=== PATIENT | female | born 2000 | race Two or more races ===

== ENCOUNTER 2023-08-01 11:52 | Emergency (ER) | payer SELFPAY ==
[2023-08-01] VITALS (11 sets, daily range): BP systolic 103–117; BP diastolic 39–66; PULSE 76–107; RESP 12–14; TEMP 37.1–38.3; O2SAT 97–98
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
[2023-08-01 12:36] LABS: Bilirubin Negative (Negative); Blood Negative (Negative); Clarity Clear (Clear); Glucose Negative (Negative); Ketones Negative (Negative); Leukocyte Esterase Small (Negative); Nitrite Negative (Negative); pH 8.5 (5-8)
--- NOTE | 2023-08-01 12:45 | DI.CT_ITS ---
Exam(s) CT ABDOMEN PELVIS W EXAM: CT ABDOMEN PELVIS W CLINICAL HISTORY: back and lower abd pain. TECHNIQUE: Imaging Protocol: Axial computed tomography images with coronal and sagittal reformatted images were created and reviewed CONTRAST MATERIAL: Intravenous: Omnipaque 350 Contrast volume:100 ml Oral: no COMPARISON: No exams were available for comparison FINDINGS: ABDOMEN and PELVIS: Lung Bases: No acute findings. Liver: Normal density. No measurable mass. Gallbladder and biliary tract: No radiodense calculus or dilation. Pancreas: Normal density. No abnormal calcifications or inflammatory process. No evidence of mass. Spleen: Normal. Kidneys: Normal size, contour and axis. Multifocal areas of decreased perfusion in both kidneys, gre atest the that the right lower pole could represent multifocal pyelonephritis. No perinephric collec tions. Mild urothelial enhancement. No radiodense stones. No obstructive uropathy. No suspicious ma sses seen. Adrenal glands: No masses seen. Vasculature: Abdominal aorta non-dilated. Soft tissues: Unremarkable. Bladder: Low bladder volume. Mild diffuse wall thickening. No calculi.No focal mass. Bowel: No obstruction. No bowel wall thickening. Appendix normal. Peritoneal cavity: No ascites. No focal collection or mesenteric inflammatory response. Bones: Hardware in the sacrum and pelvis creates artifact. Old moderate L2 compression fracture with retropulsion. No acute appearing abnormalities. Reproductive organs: Within normal limits. Lymph nodes: Unremarkable. IMPRESSION:: Patchy areas of decreased renal perfusion could represent multifocal pyelonephritis. M ild urothelial enhancement. Question of mild bladder wall thickening versus under distension. RADIATION DOSE DELIVERED: Total DLP DATA REPOSITORY: All CT scans at this facility are submitted to the National Radiology Data Registry (NRDR) Dose Index Registry (DIR) with the [employer] (ACR). RADIATION OPTIMIZATION: All CT scans at this facility use at least one of these dose optimization te chniques: automated exposure control; mA and/or kV adjustment per patient size (includes targeted exa ms where dose is matched to clinical indication); or iterative reconstruction.
[2023-08-01 12:47] LABS: Bacteria Few HPF (Negative); C & S Indicated? No/Sq. Contamination; Casts Negative LPF (Negative); Crystals Negative HPF (Negative); Epithelial Cells Many HPF (Negative); Mucus Negative (Negative); RBC 0-2 HPF (0-2); WBC 20-50 HPF (0-5)
[2023-08-01] MEDS: Normal Saline 1,000 ML 1000 ML IV (12:51)
[2023-08-01 12:52] LABS: Abs Immature Grans 0.02 10^3/uL (0.0-0.06); Absolute Basophil Count 0.04 10^3/uL (0.0-0.2); Absolute Eosinophil Count 0.03 10^3/uL (0.0-0.7); Absolute Lymphocyte Count 0.97 10^3/uL (1.2-3.4); Absolute Monocyte Count 1.04 10^3/uL (0.1-0.8); Absolute Neutrophil Count 5.91 10^3/uL (1.2-6.7); Basophils % 0.5; Eosinophils % 0.4; HCT 32.5 % (36.0-46.0); HGB 11.2 g/dL (11.2-15.7); Immature Grans % 0.2; Lymphocytes % 12.1; MCH 29.6 pg (27.0-33.0); MCHC 34.5 % (32.0-36.0); MCV 86 fL (80-95); MPV 10.1 fL (8.0-11.0); Neutrophils % 73.8; Platelet Count 298 10^3/uL (130-400); RBC 3.78 10^6/uL (3.93-5.22); RDW 13.1 % (11.7-14.6); RDW-SD 41.1 fL; WBC 8.01 10^3/uL (4.4-10.8)
[2023-08-01] MEDS: Ketorolac 15 MG/ML VIAL IVP (12:59)
[2023-08-01] MEDS: Normal Saline Flush 10 ML SYR IVP (13:00)
[2023-08-01] MEDS: ACETAMINOPHEN 1,000 MG/100 ML BTL 400 MG IVPB (13:00)
[2023-08-01 13:10] LABS: ALT 29 U/L (14-59); AST 18 U/L (15-37); Albumin 3.3 g/dL (3.4-5.0); Alkaline Phosphatase 84 U/L (46-116); Anion Gap 11.5 mmol/L (3-11); BUN 6 mg/dL (7-18); Bilirubin, Total 0.5 mg/dL (0.2-1.0); CO2 24.5 mmol/L (21.0-32.0); CREATININE 0.6 mg/dL (0.55-1.02); Calcium 8.9 mg/dL (8.5-10.1); Chloride 101 mmol/L (98-107); Estimated GFR 127.67 (mL/min/1.73m2); Glucose 112 mg/dL (74-106); Lipase 35 U/L (16-77); Magnesium 1.9 mg/dL (1.8-2.4); Potassium 3.4 mmol/L (3.5-5.1); Sodium 137 mmol/L (136-145); Total Protein 7.7 g/dL (6.4-8.2)
[2023-08-01 13:28] LABS: COVID-19 PCR Negative (Negative); Influenza A PCR Negative (Negative); Influenza B PCR Negative (Negative); RSV PCR Negative (Negative)
[2023-08-01 13:30] LABS: Source Nasopharynx
[2023-08-01] MEDS: Omnipaque 350 MG/ML 100 ML BTL IJ (13:38)
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
[2023-08-01] MEDS: cefTRIAXone 2 GM/50 ML BAG IVPB (14:33)
--- NOTE | 2023-08-01 14:58 | NUR.NOTE ---
Referral given to Care Management for needs PCP, follow up pyleo. In 3 to 4 days. Nursing Note:
== END 2023-08-01 15:29 | disposition home or self-care (01) ==
LOC: ER 15:21
PROVIDERS: Emergency Provider Nurse Practitioner Family
DX: N10 Acute pyelonephritis (principal); F17.210 Nicotine dependence, cigarettes, uncomplicated; Z11.52 Encounter for screening for COVID-19; Z59.01 Sheltered homelessness
CPT/HCPCS: 80053; 81025; 83690; 87637; 96361; 96365; 96375; 99285; 74177; 81003; 81015; 83735; 85025; 99284; J0131; J0696; J1885; J3490